=== PATIENT | female | born 2000 | race Caucasian/White ===

== ENCOUNTER 2020-12-18 08:54 | Emergency (ER) | payer BC, OTHER ==
[2020-12-18 09:15] VITALS: BP 127/82; PULSE 86; O2SAT 98
--- NOTE | 2020-12-18 09:26 | ERPHSYRPT ---
- History of Present Illness Source: patient Patient Subjective Stated Complaint: vaginal bleeding, cramping Triage Nursing Assessment: pt to ED c/o vaginal bleeding and lower abd cramping x1 day. reports LMP ended 12/13/20. hx abnormal menstration and sees Dr Joseph for PCP who prescribed control to help with menstration sx. pt reports missing 3 days of oral contraceptive recently. also states she has always had painful intercourse Physician History: 20 yo wm who has irregular period presents w vaginal bleeding and pelvic cramping since yesterday. Last period was 12/13/20. She denies /N/V/D/dysuria/hematuria/fever. Pt is taking OC. Timing/Duration: yesterday Activites at Onset: none Quality: cramping Onset Location: pelvic pain Pain Radiation: none Severity of Pain-Max: moderate Severity of Pain-Current: moderate Prior abdominal problems: similar symptoms Modifying Factors: Improves With: nothing Associated Symptoms: No abdominal pain, No fever, No chills, No diaphoresis, No nausea, No vomiting, No dysuria, No nocturia, No polyuria, No urinary frequency, No , No loss of bladder control, No lower back pain, No lumps, No mass, No swelling, No syncope, No vaginal discharge Hx Tetanus, Diphtheria Vaccination/Date Given: Yes Hx Influenza Vaccination/Date Given: Yes Hx Pneumococcal Vaccination/Date Given: No Travel Risk - International Travel Have you traveled outside of the country in past 3 weeks: No - Coronavirus Screening Are you exhibiting any of the following symptoms?: No Close contact with a COVID-19 positive Pt in past 14-21 Days: No - Vaccine Status Have you recieved a Covid-19 vaccination: No - Review of Systems Constitutional: No Symptoms Eyes: No Symptoms Ears, Nose, & Throat: No Symptoms Respiratory: No Symptoms Cardiac: No Symptoms Abdominal/Gastrointestinal: No Symptoms Genitourinary Symptoms: No Symptoms Musculoskeletal: No Symptoms Skin: No Symptoms Neurological: No Symptoms Psychological: No Symptoms Endocrine: No Symptoms Hematologic/Lymphatic: No Symptoms Immunological/Allergic: No Symptoms - Past Medical History Pertinent Past Medical History: Yes GI Medical History: GERD, Other Psycho-Social History: Anxiety Other Medical History: IBS - Past Surgical History Past Surgical History: No - Social History Smoking Status: Never smoker Exposure to second hand smoke: No Drug Use: none Patient Lives Alone: No Significant Family History: no pertinent family hx - Female History Hx Last Menstrual Period: 12/13/20 Hx Now: No - Nursing Vital Signs Nursing Vital Signs: Initial Vital Signs Temperature 96.9 F 12/18/20 09:05 Pulse Rate 86 12/18/20 09:05 Respiratory Rate 18 12/18/20 09:05 Blood Pressure 127/82 12/18/20 09:05 O2 Sat by Pulse Oximetry 98 12/18/20 09:05 Pain Scale Pain Intensity 3 WNL - Physical Exam General Appearance: no apparent distress Eye Exam: PERRL/EOMI, eyes nml inspection Ears, Nose, Throat Exam: normal ENT inspection, TMs normal, pharynx normal, moist mucous membranes Neck Exam: normal inspection, non-tender, supple, full range of motion, No meningismus, No mass, No Brudzinski, No Kernig's Respiratory Exam: normal breath sounds, lungs clear, airway intact, No chest tenderness, No respiratory distress Cardiovascular Exam: regular rate/rhythm, normal heart sounds, normal peripheral pulses, No murmur Gastrointestinal/Abdomen Exam: soft, normal bowel sounds, tenderness (Mild supra-pubic TTP at best) Back Exam: normal inspection, normal range of motion Extremity Exam: normal inspection, normal range of motion Neurologic Exam: alert, oriented x 3, cooperative, 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, normal mood/affect, nml cerebellar function, nml station & gait, sensation nml, No motor deficits, No sensory deficit Skin Exam: normal color, warm, dry, No rash Lymphatic Exam: No adenopathy SpO2 Interpretation: normal SpO2: 98 O2 Delivery: Room Air - Course Nursing assessment & vital signs reviewed: Yes Ordered Tests: Active Orders 24 hr Category Date Time Status CULTURE,URINE Stat Lab 12/18/20 09:15 Received HCG,QUALITATIVE URINE Stat Lab 12/18/20 09:15 Completed UA W/RFX UR CULTURE Stat Lab 12/18/20 09:15 Completed Medication Summary Discontinued Medications Generic Name Dose Route Start Last Admin Trade Name Freq PRN Reason Stop Dose Admin Ketorolac Tromethamine 30 mg 12/18/20 09:48 12/18/20 09:50 Toradol 30 Mg Injection IM 12/18/20 09:49 30 mg STAT ONE Administration Ketorolac Tromethamine Confirm 12/18/20 09:49 Toradol 30 Mg Injection Administered 12/18/20 09:50 Dose 30 mg .ROUTE .STK-MED ONE Lab/Rad Data: Laboratory Results 12/18/20 12/18/20 Range/Units 09:15 09:15 Urine Color STRAW (YELLOW) Urine Appearance CLEAR (CLEAR) Urine pH 6.0 (5-6) Ur Specific Shafer 1.010 (1.005-1.025) Urine Protein NEGATIVE (Negative) Urine Ketones NEGATIVE (NEGATIVE) Urine Blood LARGE (0-5) Todd/ul Urine Nitrite NEGATIVE (NEGATIVE) Urine Bilirubin NEGATIVE (NEGATIVE) Urine Urobilinogen NEGATIVE (0-1) mg/dL Ur Leukocyte Esterase NEGATIVE (NEGATIVE) Urine WBC (Auto) 3-5 (0-5) /HPF Urine RBC (Auto) >101 (0-2) /HPF U Epithel Cells (Auto) NONE (FEW) /HPF Urine Bacteria (Auto) RARE (NEGATIVE) /HPF Urine Mucus (Auto) SLIGHT (NEGATIVE) /HPF Urine Culture Reflexed YES (NO) Urine Glucose NEGATIVE (NEGATIVE) mg/dL Urine HCG, Qual NEGATIVE (Negative) - Progress Progress: improved Progress Note: 12/18/20 09:49 30mg IM Toradol Counseled pt/family regarding: lab results, diagnosis, need for follow-up - Departure Departure Disposition: Home Clinical Impression: Vagina bleeding Condition: Stable Critical Care Time: No Referrals: CHRIS LEMA [Primary Care Provider] - Instructions: Heavy Periods (DC), Menstrual Cramps (DC) Additional Instructions: Follow up with family MD or subacute nurse Motrin 400-800mg three times a day as needed for pain/bleeding Return to ER for increasing pain or four soaked entirely soaked through pads in 1 hour
[2020-12-18 09:29] LABS: Appearance CLEAR (CLEAR); Bacteria RARE /HPF (NEGATIVE); Bilirubin NEGATIVE (NEGATIVE); Blood LARGE Ery/ul (0-5); Glucose NEGATIVE (NEGATIVE); Ketones NEGATIVE (NEGATIVE); Leukocyte Esterase NEGATIVE (NEGATIVE); Mucus SLIGHT /HPF (NEGATIVE); Nitrite NEGATIVE (NEGATIVE); Protein,Urine Dip NEGATIVE (Negative); Urobilinogen NEGATIVE mg/dL (0-1)
[2020-12-18 09:30] LABS: RBC >101 /HPF (0-2)
[2020-12-18] MEDS ORDERED: TORAdol 30 mg Injection IM ONE (09:48)
[2020-12-18] MEDS ORDERED: TORAdol 30 mg Injection ONE (09:49)
== END 2020-12-18 10:03 | disposition home or self-care (01) ==
LOC: ED 08:54
DX: N93.9 Abnormal uterine and vaginal bleeding, unspecified (principal); R10.9 Unspecified abdominal pain
CPT/HCPCS: 81001; 84703; 87086; 96372; 99284; J1885